=== PATIENT | male | born 1945 | race African-American/Black ===

== ENCOUNTER 2022-08-20 06:05 | Emergency (ER) | payer OTHER ==
[2022-08-20] MEDS ORDERED: DEXTROSE 50% WATER 50ML SYRINGE IV NR (06:30)
[2022-08-20 08:47] LABS: BASOPHILS % 0.4 % (0.0-2.0); HEMATOCRIT. 38.4 % (42.0-52.0); HEMOGLOBIN. 12.3 g/dL (14.0-18.0); LYMPHOCYTES % 17.5 % (20.0-50.0); MEAN CORPUSCULAR HEMOGLOBIN 28.8 pg (28.0-32.0); MEAN CORPUSCULAR VOLUME 89.6 fL (80.0-94.0); MEAN PLATELET VOLUME 9.1 fl (7.4-10.4); MONOCYTES % 5.3 % (2.0-8.0); NEUTROPHILS % 76.8 % (40.0-76.0); PLATELET 215 x1000/uL (130-400); RED BLOOD CELL COUNT 4.29 mill/uL (4.7-6.1); RED CELL DISTRIBUTION WIDTH 16.3 % (11.6-14.6)
[2022-08-20 08:55] LABS: CHLORIDE 106 mEq/L (98-107)
[2022-08-20 09:03] LABS: ETHANOL BLOOD 298 mg/dL
[2022-08-20 12:29] VITALS: BP 124/80
== END 2022-08-20 12:29 | disposition home or self-care (01) ==
LOC: ER 06:05
DX: F10.20 Alcohol dependence, uncomplicated (principal); F03.90 Unspecified dementia, unspecified severity, without behavioral disturbance, psychotic disturbance, mood disturbance, and anxiety
CPT/HCPCS: 36415; 73560; 80053; 80320; 82962; 85025; 96374; 99285; G0480